=== PATIENT | male | born 1950 | race Caucasian/White ===

== ENCOUNTER → 2024-10-30 | Outpatient (CLI) | payer MEDICARE, SELFPAY ==
--- NOTE | 2024-10-30 12:11 | US_ITS ---
EXAM: US CHEST LIMITED CLINICAL INDICATION: US of midline back cyst TECHNIQUE: Real-time ultrasound of the soft tissues of the back of the chest with image documentation. COMPARISON: No relevant prior studies available. FINDINGS: SOFT TISSUES: Well-circumscribed hypoechoic lesion measuring 0.9 x 0.4 x 0.9 cm just deep to the skin in the area of interest on the midline back. There are some homogeneous low level echoes within this lesion. US/Chest IMPRESSION: Well-circumscribed hypoechoic lesion measuring 0.9 x 0.4 x 0.9 cm just deep to the skin in the area of interest on the midline back. There are some homogeneous low level echoes within this lesion. This likely represents an epidermal inclusion cyst. Electronically Signed: Xavier Sexton MD at 8:17 EST ,
== END | disposition home or self-care (01) ==
PROVIDERS: Referring Provider Surgery Plastic and Reconstructive Surgery; Visit Provider Surgery Plastic and Reconstructive Surgery
DX: L72.9 Follicular cyst of the skin and subcutaneous tissue, unspecified (principal)
CPT/HCPCS: 76604

== ENCOUNTER → 2024-11-07 | Outpatient (CLI) | payer MEDICARE, SELFPAY ==
--- NOTE | 2024-11-07 | CYST_PTH ---
PATIENT: MEGAN HART LOC: [facility] U#:[id number] AGE/SX: 74/M ROOM: RE11/07/[address]: Dr. Tristen Martinez MD : 1950 BED: DIS: 11/07/2024 SPEC #: [id number] RECD: 11/07/24 14:01 STATUS: PARTH RECharleen #: [id number] SYDNI: 11/07/24 00:[address]: Tristen Martinez DEPT: SURGICAL PATHOLOGY RECD BY: Rober Blackwell ENTERED: 11/10/24 10:10 SP TYPE: Cyst OTHR DR: No Primary Care Phys Tissues: CYST Procedures: Surgery Specimen Level III HEADER OPERATION: Excision, back cyst PRE-OP DIAGNOSIS: Back cyst TISSUE SUBMITTED: Back cyst MICROSCOPIC DIAGNOSIS Back cyst, excision: Epidermal inclusion cyst. 11/11/2024 MICROSCOPIC DESCRIPTION Slides are reviewed. GROSS DESCRIPTION Received is one container labeled with the patient name and designated back cyst. The specimen consists of one irregular fragment of light paez soft tissue that measures 2 x 0.6 x 0.8 cm. The specimen is serially sectioned and reveal a cyst measuring 0.6 cm in greatest dimension. The entire specimen is submitted in one cassette. /SJ:jennifer 11/10/24 CPT: 23766
== END | disposition home or self-care (01) ==
PROVIDERS: Referring Provider Surgery Plastic and Reconstructive Surgery; Visit Provider Surgery Plastic and Reconstructive Surgery
DX: L72.0 Epidermal cyst (principal)
CPT/HCPCS: 88304